=== PATIENT | male | born 2000 | race Caucasian/White ===

== ENCOUNTER 2020-06-28 02:40 | Emergency (ER) | payer BC ==
[~2020-06-28] VITALS: Ht 182.9 cm; Wt 59.0 kg
[2020-06-28 02:58] VITALS: BP 156/81
--- NOTE | 2020-06-28 03:24 | ER.PDOC ---
General Chief Complaint: Requesting Medical Care Stated Complaint: TONGUE BLISTERS Time seen by MD: 03:11 Source: patient Exam Limitations: no limitations History of Present Illness Initial Comments Pt reports some burning sensation in the back of his tongue and in his throat. 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 Got thrush after event . No fever Timing/Duration: gradual Associated Symptoms: mild sore throat Severity: mild Prior symptoms/Treatment: Similar symptoms previous; No Recenly Seen Allergies: Coded Allergies: No Known Allergies (Unverified , 08/16/15) Home Meds No Active Prescriptions or Reported Meds Past Medical History Medical History: no pertinent history Surgical History: no surgical history Family History Significant Family History: no pertinent family hx Social History Alcohol Use: heavy Drug Use: marijuana Constitutional: no symptoms reported; denies chills, denies fever Eyes: no symptoms reported Ears: no symptoms reported Nose: no symptoms reported Mouth: see HPI; denies clots, denies loose teeth, denies bloody discharge, denies purulent discharge Throat: see HPI Respiratory: no symptoms reported; denies cough, denies shortness of breath, denies wheezing Cardiovascular: no symptoms reported Gastrointestinal: no symptoms reported Musculoskeletal: no symptoms reported Skin: no symptoms reported Neurological: no symptoms reported All Other Systems: Reviewed and Negative Physical Exam General Appearance: alert, no distress Head/Neck: head nml inspection, neck nml inspection, trachea midline Mouth: lips, gums nml, no drooling, no thrush, membranes nml Throat: pharyngeal erythema (mild) Respiratory: no resp. distress Abdomen: non-tender Skin Exam: Normal Color NEURO/PSYCH: oriented X3 Comments tongue with slight irritation to tastebuds, no significant erythema noted Results/Orders Results/Orders Orders - LANCE SEO DO Strep Screen (06/28/20 03:25) Vital Signs Date Time Temp Pulse Resp B/P (MAP) Pulse Ox O2 Delivery O2 Flow Rate FiO2 06/28/20 02:58 98.4 93 16 156/81 (106) 98 Room Air 06/28/20 02:58 98.4 93 18 06/28/20 02:58 98.4 93 16 98 Progress Progress Positive for strep, will give Rx Amoxicillin, no signs of peritonsillar abscess, no uvular deviation, peritonsillar mass seen. Departure Time of Disposition: 03:38 Disposition: 01 HOME, SELF-CARE Impression: Primary Impression: Strep pharyngitis Condition: Stable Referrals: PCP,UNKNOWN (PCP) PRIMARY CARE PROVIDER Scripts No Active Prescriptions or Reported Meds Duration or Time Spent with Pa: LANCE CHAUHAN DO Jun 28, 2020 03:24
== END 2020-06-28 03:50 | disposition home or self-care (01) ==
LOC: ER 02:40
DX: J02.0 Streptococcal pharyngitis (principal); F12.10 Cannabis abuse, uncomplicated; Z86.14 Personal history of Methicillin resistant Staphylococcus aureus infection
CPT/HCPCS: 87880; 99283

== ENCOUNTER 2020-09-20 02:34 | Emergency (ER) | payer BC ==
[~2020-09-20] VITALS: Ht 182.9 cm; Wt 59.0 kg
[2020-09-20 02:52] VITALS: BP 146/86
--- NOTE | 2020-09-20 03:06 | ER.PDOC ---
General Chief Complaint: Sore Throat Stated Complaint: COUGH,SORE THROAT,HEADACHE Time seen by MD: 02:55 Source: patient Exam Limitations: no limitations History of Present Illness Initial Comments sore throat and runny nose for two days. Timing/Duration: gradual Associated Symptoms: mild sore throat, runny nose, congestion, cough Severity: mild Allergies: Coded Allergies: No Known Allergies (Unverified , 08/16/15) Home Meds No Active Prescriptions or Reported Meds Past Medical History Medical History: no pertinent history Surgical History: no surgical history Social History Alcohol Use: occassionally Drug Use: none Constitutional: denies chills, denies fever Eyes: denies drainage Ears: denies pain Nose: congestion Mouth: denies pain Throat: pain; denies hoarse, denies muffled Respiratory: cough; denies shortness of breath Cardiovascular: denies chest pain Gastrointestinal: denies abdominal pain Musculoskeletal: denies neck pain Skin: denies rash Neurological: denies headache Hematologic/Lymphatic: denies blood clots Physical Exam General Appearance: alert, no distress Head/Neck: cervical lymphadenopathy Eyes: eyes nml inspection Mouth: lips, gums nml Throat: pharyngeal erythema Ears/Nose: nml inspection Respiratory: no resp. distress, lungs clear CVS: reg. rate & rhythm, heart sounds nml Abdomen: non-tender Extremities: non-tender Skin Exam: Normal Color NEURO/PSYCH: oriented X3, mood/effect nml Results/Orders Results/Orders Orders - RAQUEL PERKINS MD Influenza A&B (09/20/20 02:54) Strep Screen (09/20/20 02:54) Novel Coronavirus 2019([facility]) (09/20/20 02:54) Vital Signs Date Time Temp Pulse Resp B/P (MAP) Pulse Ox O2 Delivery O2 Flow Rate FiO2 09/20/20 02:52 98.6 77 16 09/20/20 02:52 98.6 77 16 146/86 (106) 98 Room Air 09/20/20 02:52 98.6 77 16 98 ER DEPART Departure Time of Disposition: 03:34 Disposition: 01 HOME, SELF-CARE Impression: Primary Impression: Strep pharyngitis Condition: Stable Patient Instructions: Sore Throat, Vlmv-ye-Nita, Upper Respiratory Infection, Adult Referrals: PCP,UNKNOWN (PCP) PRIMARY CARE PROVIDER NANCI SMITH MD Additional Instructions: return for any worsening symptoms, self quarantine as your covid test is pending. Scripts No Active Prescriptions or Reported Meds Duration or Time Spent with Pa: 10 RAQUEL PERKINS MD Sep 20, 2020 03:06
--- NOTE | 2020-09-20 03:40 | NUR ---
LAB CALLED BASHIR BRIGHT
[2020-09-20 04:00] VITALS: BP 132/72
== END 2020-09-20 04:00 | disposition home or self-care (01) ==
LOC: ER 02:34
DX: J02.0 Streptococcal pharyngitis (principal); Z20.828 Contact with and (suspected) exposure to other viral communicable diseases
CPT/HCPCS: 87635; 87804; 87880; 99283

== ENCOUNTER 2020-12-31 22:55 | Emergency (ER) | payer BC ==
[~2020-12-31] VITALS: Ht 182.9 cm; Wt 65.8 kg
[2020-12-31 23:07] VITALS: BP 126/73
[2020-12-31 23:11] VITALS: BP 126/73
[2020-12-31] MEDS ORDERED: TYLENOL PO STA (23:11)
--- NOTE | 2020-12-31 23:14 | ER.PDOC ---
General Chief Complaint: Extremities Stated Complaint: FINGER INJURY Time seen by MD: 23:07 Source: patient Exam Limitations: no limitations History of Present Illness Initial Comments Patient accidentally smashed the third finger of his left hand distal aspect in the car door on his way to work [employer]. This occurred approximately 10 or 1030 this evening. He has not taken any medication to relieve the pain. 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 Occurred: this evening Where: home Severity: moderate Context: crush Location of Injury: (L) fingers (distal 3rd finger) Modifying Factors: pain on movement Allergies: Coded Allergies: No Known Allergies (Unverified , 08/16/15) Home Meds No Active Prescriptions or Reported Meds Past Medical History Medical History: no pertinent history Surgical History: no surgical history Family History Significant Family History: no pertinent family hx Social History Smoking: cigarettes Alcohol Use: occassionally Drug Use: marijuana Review of Systems Constitutional: denies no symptoms reported, denies see HPI, denies chills, denies diaphoresis, denies fever, denies malaise, denies weakness, denies other EENTM: denies no symptoms reported, denies see HPI, denies eye pain, denies blurred vision, denies tearing, denies double vision, denies ear pain, denies ear discharge, denies nose pain, denies nose congestion, denies throat pain, denies throat swelling, denies mouth pain, denies mouth swelling, denies other Respiratory: denies no symptoms reported, denies see HPI, denies cough, denies orthopnea, denies shortness of breath, denies stridor, denies wheezing, denies other Cardiovascular: denies no symptoms reported, denies see HPI, denies chest pain, denies edema, denies palpitations, denies syncope, denies other Gastrointestinal: denies no symptoms reported, denies see HPI, denies abdominal pain, denies constipation, denies diarrhea, denies nausea, denies vomiting, denies other Musculoskeletal: see HPI Skin: denies no symptoms reported, denies see HPI, denies change in color, denies change in hair/nails, denies dryness, denies lesions, denies lumps, denies rash, denies other All Other Systems: Reviewed and Negative Physical Exam General Appearance: Alert, No Apparent Distress Hand: no evidence FB, tenderness (distal 3rd finger), nail partial avulsion (no avulsion but there is a small subungal hematoma (<1/3)) Wrist: nml inspection, non-tender, nml ROM Neuro: sensation nml, motor nml Vascular: no vascular compromise Forearm/Elbow/Arm: uninjured above wrist Skin: warm/dry Head/ENT: nml inspection, pharynx nml Neck/Back: nml inspection, non-tender Resp/CVS: no resp distress, lungs clear, heart sounds nml, reg. rate & rhythm Abdomen: non-tender, no organomegaly Results/Orders Results/Orders Orders - ARELY DE LA GARZA DO Xr Hand Lt (12/31/20 23:10) Acetaminophen (Tylenol) (12/31/20 23:11) Vital Signs Date Time Temp Pulse Resp B/P (MAP) Pulse Ox O2 Delivery O2 Flow Rate FiO2 12/31/20 23:11 97.8 87 16 126/73 (90) 97 Room Air 12/31/20 23:07 97.8 87 16 12/31/20 23:07 97.8 87 16 126/73 (90) 97 Room Air 12/31/20 23:07 97.8 87 16 97 Administered Medications Medications (Trade) Dose Ordered Sig/[place] Route PRN Reason Start Time Stop Time Status Last Admin Dose Admin Acetaminophen (Tylenol) 1,000 mg STAT STAT PO 12/31/20 23:11 12/31/20 23:12 UNV 12/31/20 23:16 1,000 MG EKG/XRAY/CT/US XRAY Comments: no fx seen ER DEPART Departure Time of Disposition: 23:41 Disposition: 01 HOME, SELF-CARE Impression: Primary Impression: Crushing injury of finger Condition: Stable Patient Instructions: Crush Injury, Fingers or Toes Referrals: PCP,UNKNOWN (PCP) PRIMARY CARE PROVIDER Additional Instructions: Alternate Tylenol and Motrin per package instructions every 3-4 hours as needed for pain. Ice and elevate for 1 to 2 days. Return to the emergency department for any emergent concerns. Follow-up with your primary care physician next week. Scripts No Active Prescriptions or Reported Meds Duration or Time Spent with Pa: 20 min Problem Qualifiers Primary Impression: Crushing injury of finger Encounter type: initial encounter Qualified Codes: S67.10XA - Crushing injury of unspecified finger(s), initial encounter ARELY DE LA GARZA DO Dec 31, 2020 23:14
[2020-12-31] MEDS ORDERED: TYLENOL PO ONE (23:15)
[2020-12-31 23:50] VITALS: BP 115/68
--- NOTE | 2020-12-31 23:56 | DIREP ---
PROCEDURE:XRAY HAND MIN 3 VW-LT COMPARISON:None. INDICATIONS:injury distal 3rd finger FINDINGS: BONES:Normal. JOINTS:Normal. SOFT TISSUES:Normal. OTHER:No additional findings. CONCLUSION:Normal examination. Dictated by: Yonatan Dai MD on 12/31/2020 at 11:45 PM
== END 2020-12-31 23:50 | disposition home or self-care (01) ==
LOC: ER 22:55
DX: S67.193A Crushing injury of left middle finger, initial encounter (principal); F17.210 Nicotine dependence, cigarettes, uncomplicated; W23.0XXA Caught, crushed, jammed, or pinched between moving objects, initial encounter; Y93.89 Activity, other specified; Y92.89 Other specified places as the place of occurrence of the external cause; Y99.8 Other external cause status
CPT/HCPCS: 73130; 99283; A9150

== ENCOUNTER 2021-02-15 01:07 | Emergency (ER) | payer BC ==
[~2021-02-15] VITALS: Ht 182.9 cm; Wt 63.5 kg
[2021-02-15] MEDS ORDERED: FUL-GLO OP ONE (01:16)
[2021-02-15] MEDS ORDERED: TETRACAINE 0.5% EYE DROPS ONE (01:16)
[2021-02-15 01:20] VITALS: BP 136/72
--- NOTE | 2021-02-15 01:30 | ER.PDOC ---
General Chief Complaint: Eye Problems Stated Complaint: POSS GLASS IN EYE Time seen by MD: 01:26 Source: patient Exam Limitations: no limitations History of Present Illness Initial Comments Possible piece of glass in the left eye. Patient's phone got broken and he felt like a piece of glass entered his left eye. He was able to to get it out. He still has irritation of the left eye and decided to come to be checked thinking that he may have another piece of glass in it. Timing/Duration: gradual Associated Symptoms: pian Location: left eye Severity: mild Context: foreign body Where: home Allergies: Coded Allergies: No Known Allergies (Unverified , 08/16/15) Home Meds No Active Prescriptions or Reported Meds Past Medical History Medical History: no pertinent history Surgical History: no surgical history Family History Significant Family History: no pertinent family hx Social History Alcohol Use: occassionally Drug Use: marijuana Constitutional: no symptoms reported Eyes: see HPI Mouth: no symptoms reported Throat: no symptoms reported Respiratory: no symptoms reported Cardiovascular: no symptoms reported All Other Systems: Reviewed and Negative Physical Exam General Appearance: alert, no distress Visual Acuity: no globe trauma Eyelid: nml inspection Conjunctiva/Sclera: nml inspection Corneas: nml inspection, exam w/flurescein (L) EOM's: intact, no nystagmus Pupils: PERRL, nml accommodation Head/ENT: nml inspection Skin Exam: Normal Color, Warm/Dry Neck/Back: nml inspection, painless ROM Resp/CVS: no resp distress, lungs clear, heart sounds nml, reg. rate & rhythm Abdomen: non-tender, no organomegaly NEURO/PSYCH: oriented X3, mood/effect nml Results/Orders Results/Orders Vital Signs Date Time Temp Pulse Resp B/P (MAP) Pulse Ox O2 Delivery O2 Flow Rate FiO2 02/15/21 01:20 97.9 98 16 02/15/21 01:20 97.9 98 16 136/72 (93) 96 Room Air 02/15/21 01:20 97.9 98 16 96 Progress Progress No glass seen on thorough left eye exam. Fluorescein dye stain did not show any corneal abrasion. ER DEPART Departure Time of Disposition: :28 Disposition: 01 HOME, SELF-CARE Impression: Primary Impression: Foreign body in eyeball, left Condition: Stable Referrals: PCP,UNKNOWN (PCP) PRIMARY CARE PROVIDER Additional Instructions: Follow-up with eye doctor at [facility] tomorrow if no improvement Return to ED if any concerns Scripts No Active Prescriptions or Reported Meds Duration or Time Spent with Pa: 10 min Problem Qualifiers Primary Impression: Foreign body in eyeball, left Encounter type: initial encounter Qualified Codes: S05.52XA - Penetrating wound with foreign body of left eyeball, initial encounter ROXANA BORREGO MD Feb 15, 2021 01:30
== END 2021-02-15 01:36 | disposition home or self-care (01) ==
LOC: ER 01:07
DX: S05.52XA Penetrating wound with foreign body of left eyeball, initial encounter (principal); F12.90 Cannabis use, unspecified, uncomplicated; X58.XXXA Exposure to other specified factors, initial encounter; Y93.89 Activity, other specified; Y92.89 Other specified places as the place of occurrence of the external cause; Y99.8 Other external cause status
CPT/HCPCS: 99283

== ENCOUNTER 2021-04-01 03:56 | Emergency (ER) | payer BC ==
[~2021-04-01] VITALS: Ht 182.9 cm; Wt 65.8 kg
[2021-04-01 04:08] VITALS: BP 150/90
--- NOTE | 2021-04-01 04:20 | NUR ---
Patient presents of C/O epigastric pain radiating to lower abdomen. Denies fever, diarrhea, vomiting.
[2021-04-01] MEDS ORDERED: PROTONIX IV IV STA (04:23)
[2021-04-01] MEDS ORDERED: LIDOCAINE VISCOUS MM STA (04:23)
[2021-04-01] MEDS ORDERED: MYLANTA PO STA (04:23)
--- NOTE | 2021-04-01 04:25 | NUR ---
Using aseptic technique, inserted 20 gauge IV in right forearm x 1 attempt, good blood return, collected blood specimens for lab work. Flushed with NS and secured with tegaderm and tape, patient tolerated well.
--- NOTE | 2021-04-01 04:27 | ER.PDOC ---
General Chief Complaint: Abdomen Pain Stated Complaint: ABDOMINAL PAIN Time seen by MD: 04:26 Source: patient Exam Limitations: no limitations History of Present Illness Initial Comments Epigastric pain on and off for several months worse this morning. No nausea, vomiting or diarrhea. No fever or chills. Pain is about a 6 out of 10 and burning. Timing/Duration: 1-3 hours Severity/Quality: moderate, burning Radiation: no radiation Associated Symptoms: denies symptoms Exacerbated by: nothing Relieved By: nothing Allergies: Coded Allergies: No Known Allergies (Unverified , 08/16/15) Home Meds No Active Prescriptions or Reported Meds Vital Signs First Vital Signs Date Time Temp Pulse Resp B/P (MAP) Pulse Ox O2 Delivery O2 Flow Rate FiO2 04/01/21 04:08 98.4 85 18 96 04/01/21 04:08 150/90 (110) Last Vital Signs Date Time Temp Pulse Resp B/P (MAP) Pulse Ox O2 Delivery O2 Flow Rate FiO2 04/01/21 05:23 80 18 138/84 (102) 97 04/01/21 04:08 98.4 Past Medical History Medical History: no pertinent history Surgical History: no surgical history Family History Significant Family History: no pertinent family hx Social History Smoking: non-smoker, greater than 1 pack/day Alcohol Use: occassionally Drug Use: marijuana Constitutional: no symptoms reported EENTM: no symptoms reported Respiratory: no symptoms reported Cardiovascular: no symptoms reported Gastrointestinal: see HPI All Other Systems: Reviewed and Negative Physical Exam General Appearance: No Apparent Distress, WD/WN Neck: Non-Tender, Full Range of Motion, Supple, Normal Inspection Respiratory: chest non-tender, lungs clear, normal breath sounds, no respirator y distress, no accessory muscle use Cardiovascular: Normal Peripheral Pulses, Regular Rate, Rhythm, No Edema, No Gallop, No JVD, No Murmur Gastrointestinal: Normal Bowel Sounds, No Organomegaly, No Pulsatile Mass, Tenderness (epigastric) Back: Normal Inspection, No CVA Tenderness, No Vertebral Tenderness Extremities: Normal Range of Motion, Non-Tender, Normal Inspection, No Pedal Edema, No Calf Tenderness, Normal Capillary Refill, Pelvis Stable Neurologic/Psychiatric: escrow processor II-XII NML as Tested, No Motor/Sensory Deficits, Alert, Normal Mood/Affect, Oriented x 3 Skin: Normal Color, Warm/Dry Lymphatic: No Adenopathy Results/Orders Results/Orders Orders - ROXANA BORREGO MD Cbc With Auto Diff (04/01/21 04:23) Comprehensive Metabolic Panel (04/01/21 04:23) Lipase (04/01/21 04:23) Helicobacter Pylori (04/01/21 04:23) Ct Abd/Pel With Iv Contrast (04/01/21 04:23) Urinalysis (04/01/21 04:23) Mag Hydrox/Aluminum Hyd/Simeth (Mylanta) (04/01/21 04:23) Lidocaine Hcl (Lidocaine Viscous) (04/01/21 04:23) Pantoprazole Sodium (Protonix Iv) (04/01/21 04:23) Lidocaine Hcl (Lidocaine Viscous) (04/01/21 04:29) Mag Hydrox/Aluminum Hyd/Simeth (Mylanta) (04/01/21 04:29) Pantoprazole Sodium (Protonix Iv) (04/01/21 04:29) Vital Signs Date Time Temp Pulse Resp B/P (MAP) Pulse Ox O2 Delivery O2 Flow Rate FiO2 04/01/21 05:23 80 18 138/84 (102) 97 04/01/21 04:08 98.4 85 18 150/90 (110) 96 04/01/21 04:08 98.4 85 18 04/01/21 04:08 98.4 85 18 96 Administered Medications Medications (Trade) Dose Ordered Sig/[place] Route PRN Reason Start Time Stop Time Status Last Admin Dose Admin Lidocaine HCl (Lidocaine Viscous) 10 ml STAT STAT MM 04/01/21 04:23 04/01/21 04:26 DC 04/01/21 04:30 10 ML Pantoprazole Sodium (Protonix Iv) 40 mg STAT STAT IV 04/01/21 04:23 04/01/21 04:26 DC 04/01/21 04:35 40 MG Laboratory Tests Test 04/01/21 04:35 04/01/21 05:03 White Blood Count 6.3 10^3/uL (4.5-11.0) Red Blood Count 4.99 10^6/uL (4.50-5.90) Hemoglobin 15.4 g/dL (13.9-16.3) Hematocrit 45.9 % (37.0-53.0) Mean Corpuscular Volume 92.0 fL (78-100) Mean Corpuscular Hemoglobin 30.9 pg (26-34) Mean Corpuscular Hemoglobin Concent 33.6 g/dL (33-36.5) Red Cell Distribution Width 12.6 % (11.5-14.5) Platelet Count 195 10^3/uL (150-400) Mean Platelet Volume 10.5 fL (7.8-11.0) Neutrophils (%) (Auto) 66.3 % (41.0-85.0) Lymphocytes (%) (Auto) 26.9 % (24.0-44.0) Monocytes (%) (Auto) 5.7 % (5.0-12.0) Neutrophils # (Auto) 4.2 10^3/uL (1.8-7.7) Lymphocytes # (Auto) 1.70 10^3/uL1 (1.0-4.8) Monocytes # (Auto) 0.4 10^3/uL (0.3-0.8) Absolute Immature Granulocyte (auto 0.01 10^3 u/L (0-2) Absolute Eosinophils (auto) 0.0 10^3/uL (0.0-0.2) Immature Granulocytes % 0.20 % (0.00-0.50) Eosinophils % 0.6 % (0.0-5.0) Basophils % 0.3 % (0.0-0.2) H Basophils # 0.0 10^3/uL (0.0-0.1) Sodium Level 141 mmol/L (132-145) Potassium Level 4.1 mmol/L (3.6-5.2) Chloride Level 103.0 mmol/L (96-109) Carbon Dioxide Level 25.9 mmol/L (20.0-32) Anion Gap 16.2 Blood Urea Nitrogen 9 mg/dL (7-18) Creatinine 0.82 mg/dL (0.59-1.40) Estimated GFR () 140.9 (>/=60) Est GFR (CKD-EPI)(Non-Afr Austrian) 116.4 (>/=60) BUN/Creatinine Ratio 10.0 Glucose Level 102 mg/dL (70-110) Calcium Level 9.6 mg/dL (8.4-10.5) Total Bilirubin 0.4 mg/dL (0.2-1.0) Aspartate Amino Transferase (AST) 13 U/L (0-35) Alanine Aminotransferase (ALT) 24 U/L (12-78) Alkaline Phosphatase 53 U/L (50-136) Total Protein 8.2 g/dL (6.4-8.2) Albumin 4.5 g/dL (3.4-5.0) Globulin 3.7 Albumin/Globulin Ratio 1.216 Lipase 33 U/L (114-286) L Helicobacter pylori Screen NEGATIVE (NEGATIVE) Urine Collection Type CCMS Urine Color YELLOW Urine Appearance CLEAR Urine Bilirubin NEGATIVE (NEGATIVE) Urine Ketones NEGATIVE (NEGATIVE) Urine Specific Zimmerman 1.020 (1.005-1.030) Urine pH 8.5 (4.5-8.0) Urine Protein NEGATIVE (NEGATIVE) Urine Urobilinogen 0.2 E.U./dL (0.2) Urine Nitrate NEGATIVE (NEGATIVE) Urine Leukocyte Esterase NEGATIVE (NEGATIVE) Urine Glucose (Auto)(UA) NEGATIVE (NEGATIVE) Urine Ketones (Manual) (NEGATIVE) Urine Blood NEGATIVE (NEGATIVE) Progress Progress CT abdomen pelvis shows no acute abnormality. Patient had a GI cocktail and he feels better. His pain is almost resolved. He is ready to go home. CBC, chemistries and lipase are all unremarkable. ER DEPART Departure Time of Disposition: 05:34 Disposition: 01 HOME / SELF CARE / HOMELESS Impression: Primary Impression: GERD (gastroesophageal reflux disease) Additional Impression: Abdominal pain Condition: Improved Referrals: PCP,UNKNOWN (PCP) PRIMARY CARE PROVIDER Additional Instructions: Protonix F/U with your PCP in 2-3 days Return to ED if worsening pain or concerns Scripts No Active Prescriptions or Reported Meds Duration or Time Spent with Pa: 60 min Problem Qualifiers Primary Impression: GERD (gastroesophageal reflux disease) Esophagitis presence: with esophagitis Esophagitis bleeding: without hemorrhage Qualified Codes: K21.00 - Gastro-esophageal reflux disease with esophagitis, without bleeding Additional Impression: Abdominal pain Abdominal location: epigastric Qualified Codes: R10.13 - Epigastric pain ROXANA BORREGO MD April 01, 2021 04:27
[2021-04-01] MEDS ORDERED: LIDOCAINE VISCOUS ONE (04:29)
[2021-04-01] MEDS ORDERED: PROTONIX IV IV ONE (04:29)
[2021-04-01] MEDS ORDERED: MYLANTA ONE (04:29)
[2021-04-01 04:43] LABS: BASOPHIL % 0.3 % (0.0-0.2); EOSINOPHIL % 0.6 % (0.0-5.0); LYMPHOCYTES % 26.9 % (24.0-44.0); MEAN CORP HGB 30.9 pg (26-34); MONOCYTES # 0.4 10^3/uL (0.3-0.8); MONOCYTES % 5.7 % (5.0-12.0); NEUTROPHIL # 4.2 10^3/uL (1.8-7.7); NEUTROPHILS % 66.3 % (41.0-85.0); PLATELET COUNT 195 10^3/uL (150-400); RED CELL DISTRIBUTION WIDTH 12.6 % (11.5-14.5)
[2021-04-01 05:01] LABS: CALCIUM 9.6 mg/dL (8.4-10.5); CARBON DIOXIDE 25.9 mmol/L (20.0-32)
[2021-04-01 05:16] LABS: BILIRUBIN,URINE NEGATIVE (NEGATIVE); UA COLOR YELLOW; UROBILINOGEN,URINE 0.2 E.U./dL (0.2)
[2021-04-01 05:23] VITALS: BP 138/84
--- NOTE | 2021-04-01 05:27 | DIREP ---
PROCEDURE:CT ABDOMEN/PELVIS W/ CONTRAST COMPARISON:[facility], CT, CT ABD/PELVIS W/O, 11/20/2018, 01:24 PM. INDICATIONS:Epigastric pain TECHNIQUE:Axial images were created through the abdomen and pelvis with non-ionic intravenous contrast material. No oral contrast was administered. Sagittal and coronal reconstructions were performed from source images. FINDINGS: LUNG BASES:Normal. No visible pulmonary or pleural disease. LIVER:Normal. No significant liver lesions are identified. BILIARY:Normal. No visible dilatation or calcification. PANCREAS:Normal. No lesion, fluid collection, ductal dilatation, or atrophy. SPLEEN:Normal. No enlargement or focal lesion. ADRENALS:Normal. No mass or enlargement. URINARY TRACT:Normal. No urinary calculi. No focal lesions or hydronephrosis. AORTA/VASCULAR:Normal. No aneurysm. RETROPERITONEUM:Normal. No mass or adenopathy. BOWEL/MESENTERY:The appendix is visualized and appears normal. There is no intestinal obstruction, free fluid, free air or mesenteric inflammatory changes. ABDOMINAL WALL:Normal. No mass or hernia. PELVIC ORGANS:Normal. No visible mass. Pelvic organs appropriate for patient age. BONES:Normal for age. No bony lesion or acute fracture. OTHER:Negative. CONCLUSION:No acute abdomen/pelvis abnormalities. Dictated by: Jorge Bowman M.D. on 04/01/2021 at 05:20 AM
--- NOTE | 2021-04-01 05:39 | NUR ---
Saline lock discontinued at this time.
== END 2021-04-01 05:40 | disposition home or self-care (01) ==
LOC: ER 03:56
DX: K21.9 Gastro-esophageal reflux disease without esophagitis (principal); F17.210 Nicotine dependence, cigarettes, uncomplicated; F12.90 Cannabis use, unspecified, uncomplicated
CPT/HCPCS: 36415; 74177; 80053; 81003; 83690; 85025; 86677; 96374; 99285; C9113; J3490; Q9965